=== PATIENT | male | born 1980 | race Caucasian/White ===

== ENCOUNTER 2019-08-17 17:38 | Emergency (ER) | payer OTHER ==
[~2019-08-17] VITALS: Ht 180.3 cm; Wt 73.5 kg
--- NOTE | 2019-08-17 17:40 | NUR ---
Patient ambulated to bed 11. RN evaluating patient at bedside.
[2019-08-17 17:45] VITALS: BP 107/49
[2019-08-17] MEDS ORDERED: BACITRACIN OINT 500 UNITS/GM PKT TP ONE (17:50)
--- NOTE | 2019-08-17 18:00 | NUR ---
c/o laceration to r forearm approx 2mm wide after hitting a window today. CMS intact, bleeding controlled at this time. date of last tdap unk. bed in low position. wound being cleaned out by JANIS Juarez
--- NOTE | 2019-08-17 18:01 | NUR ---
PILAR hu at bedside
--- NOTE | 2019-08-17 18:02 | NUR ---
APPLIED BACITRACIN AND NONADHERENT DRESSING TO RIGHT FOREARM WITHOUT ANY ISSUES.
[2019-08-17 18:35] VITALS: BP 107/49
--- NOTE | 2019-08-17 19:01 | NUR ---
Patient discharged with v/s stable. Written and verbal after care instructions given and explained. Patient alert, oriented and verbalized understanding of instructions. Ambulatory with steady gait. All questions addressed prior to discharge. ID band removed. Patient advised to follow up with PMD. Rx of BACITRACIN AND TYLENOL given. Patient educated on indication of medication including possible reaction and side effects. Opportunity to ask questions provided and answered.
== END 2019-08-17 19:01 | disposition home or self-care (01) ==
LOC: MED 17:38
DX: S50.811A Abrasion of right forearm, initial encounter (principal); W25.XXXA Contact with sharp glass, initial encounter; Y93.89 Activity, other specified; Y92.89 Other specified places as the place of occurrence of the external cause; Y99.8 Other external cause status
CPT/HCPCS: 90471; 90715; 99283

== ENCOUNTER 2021-01-30 05:30 | Emergency (ER) | payer OTHER ==
[~2021-01-30] VITALS: Ht 180.3 cm; Wt 73.5 kg
[2021-01-30 05:30] VITALS: BP 134/87
--- NOTE | 2021-01-30 05:30 | NUR ---
PT KEVIN SEWELL, PREBOOK. TAKEN TO CHAIR
--- NOTE | 2021-01-30 05:35 | NUR ---
Dr. Flores examining patient.
[2021-01-30 05:48] VITALS: BP 134/87
--- NOTE | 2021-01-30 05:49 | NUR ---
Patient discharged with v/s stable. Written and verbal after care instructions given and explained. Patient verbalized understanding. Police WITH PATIENT IN custody. All questions addressed prior to discharge. Advised to follow up with PMD.
== END 2021-01-30 05:49 ==
LOC: MED 05:30
DX: S50.811A Abrasion of right forearm, initial encounter (principal); Z02.89 Encounter for other administrative examinations; X58.XXXA Exposure to other specified factors, initial encounter; Y93.89 Activity, other specified; Y92.89 Other specified places as the place of occurrence of the external cause; Y99.8 Other external cause status
CPT/HCPCS: 99283

== ENCOUNTER 2021-02-21 01:48 | Emergency (ER) | payer OTHER ==
[~2021-02-21] VITALS: Ht 180.3 cm; Wt 72.6 kg
[2021-02-21 01:50] VITALS: BP 159/61
--- NOTE | 2021-02-21 01:50 | NUR ---
TO BED AMBULATORY
== END 2021-02-21 02:22 | disposition left against medical advice (07) ==
LOC: MED 01:48
DX: Z53.21 Procedure and treatment not carried out due to patient leaving prior to being seen by health care provider (principal)

== ENCOUNTER 2022-01-22 22:22 | Emergency (ER) | payer OTHER ==
--- NOTE | 2022-01-22 23:20 | NUR ---
PATIENT CALLED TO TO TRIAGE NO RESPONSE PATIENT LEFT WITHOUT BEING SEEN BY DR. CATES. NO FURTHER CARE PROVIDED FOR PATIENT.
--- NOTE | 2022-01-22 23:25 | NUR ---
CALLED FOT THE SECOND TIME NO RESPONSE
--- NOTE | 2022-01-22 23:35 | NUR ---
CALLED FOR THE THIRD TIME , NO RESPONSE
== END 2022-01-22 23:20 | disposition left against medical advice (07) ==
LOC: MED 22:22
DX: M79.661 Pain in right lower leg (principal); Z53.21 Procedure and treatment not carried out due to patient leaving prior to being seen by health care provider